=== PATIENT | male | born 1990 | race Caucasian/White ===

== ENCOUNTER 2022-06-11 15:03 | Emergency (ER) | payer OTHER ==
[2022-06-11] MEDS ORDERED: Morphine 2 MG/ML SYRINGE IVPUSH ONE (15:09)
[2022-06-11] MEDS ORDERED: Ondansetron 4 MG/2 ML SDV IVPUSH ONE (15:09)
[2022-06-11] MEDS ORDERED: Sodium Chloride 0.9% 10 ML Syringe FLUSH PRN (15:09)
[2022-06-11 15:39] LABS: ESTIMATED GFR 91 mL/min (>60)
[2022-06-11] MEDS ORDERED: Morphine 4 MG/ML Syringe IVPUSH ONE ×2 (15:46→17:18)
[2022-06-11] MEDS ORDERED: Sodium Chloride 0.9% 75 ML IV SCH (16:00)
[2022-06-11] MEDS ORDERED: Iopamidol 612 MG/ML 100 ML Bottle IV SCH (16:00)
[2022-06-11] MEDS ORDERED: HYDROmorphone 1 MG/ML Syringe IVPUSH ONE ×2 (16:15→17:09)
== END 2022-06-11 17:58 ==
LOC: JP.ED 15:03
DX: S12.690A Other displaced fracture of seventh cervical vertebra, initial encounter for closed fracture (principal); S22.039A Unspecified fracture of third thoracic vertebra, initial encounter for closed fracture; S22.049A Unspecified fracture of fourth thoracic vertebra, initial encounter for closed fracture; Z20.822 Contact with and (suspected) exposure to COVID-19; V86.56XA Driver of dirt bike or motor/cross bike injured in nontraffic accident, initial encounter; Y92.410 Unspecified street and highway as the place of occurrence of the external cause
CPT/HCPCS: 36415; 70450; 71260; 72125; 73562; 74177; 80053; 80307; 85025; 87635; 93005; 96374; 96375; 96376; 99285; J1170; J2270; J2405; J3490; Q9967; U0002